=== PATIENT | female | born 1985 | race Two or more races ===

== ENCOUNTER 2018-05-20 06:49 | Emergency (ER) | payer BC ==
[~2018-05-20] VITALS: Ht 172.7 cm; Wt 102.5 kg
--- NOTE | 2018-05-20 06:55 | NUR ---
PT BIBSELF C/C CHEST PAIN SINCE 299. RADIATING LEFT SHOULDER AND BACK, +N/V, -SOB. PT ON MONITOR IN BED 10 WITH FAMILY AT BEDSIDE. WILL CONTINUE TO MONITOR.
[2018-05-20] MEDS ORDERED: KETOROLAC TROMETHAMINE 15 MG/ML VIAL ONE (07:09)
[2018-05-20] MEDS ORDERED: MAG HYDROX/AL HYDROX/SIMETH 30 ML UDC ONE (07:09)
[2018-05-20] MEDS ORDERED: ONDANSETRON HCL/PF 4 MG/2 ML VIAL ONE (07:09)
[2018-05-20] MEDS ORDERED: FAMOTIDINE (20 MG) 20 MG TABLET ONE (07:10)
--- NOTE | 2018-05-20 07:11 | NUR ---
Line started on R ac g 20, blood drawn from line and sent to lab
--- NOTE | 2018-05-20 07:15 | NUR ---
TECH AT BEDSIDE FOR EKG
--- NOTE | 2018-05-20 07:29 | NUR ---
REPORT GIVEN TO LOREN LAWRENCE FOR [facility]AB[facility]
[2018-05-20] MEDS ORDERED: MAG HYDROX/AL HYDROX/SIMETH 30 ML UDC PO ONE (07:30)
[2018-05-20] MEDS ORDERED: ONDANSETRON HCL/PF 4 MG/2 ML VIAL IVP ONE (07:30)
[2018-05-20] MEDS ORDERED: KETOROLAC TROMETHAMINE INJ 30 MG/ML VIAL IV ONE (07:30)
[2018-05-20] MEDS ORDERED: FAMOTIDINE (20 MG) 20 MG TABLET PO ONE (07:30)
[2018-05-20] MEDS ORDERED: IV NS 0.9% 1,000 ML BAG IV ONE (07:30)
[2018-05-20 07:38] LABS: BASOPHILS % (AUTO) 0.6 % (0.0-2.0); EOSINOPHILS % (AUTO) 1.3 % (0.0-6.0); HEMATOCRIT 41 % (33-45); HEMOGLOBIN 14.1 g/dL (11.5-14.8); LYMPHOCYTES # (AUTO) 2.1 /CMM (0.8-4.8); LYMPHOCYTES % (AUTO) 27.3 % (20.0-44.0); MEAN CORPUSCULAR HGB CONC 34 g/dl (31.0-36.0); MEAN CORPUSCULAR VOLUME 90 fL (82-100); MONOCYTES # (AUTO) 0.7 /CMM (0.1-1.30); MONOCYTES % (AUTO) 8.5 % (2.0-12.0); NEUTROPHILS # (AUTO) 4.8 /CMM (1.8-8.9); NEUTROPHILS % (AUTO) 62.3 % (43.0-81.0); PLATELET COUNT (AUTO) 293 /CMM (150-450); RED BLOOD CELL COUNT(AUTO) 4.59 MIL/uL (4.0-5.2); WHITE BLOOD COUNT (AUTO) 7.7 K/uL (4.3-11.0)
[2018-05-20 07:58] LABS: ALANINE AMINOTRANSFERASE 31 U/L (12-78); ALBUMIN 3.9 g/dL (3.4-5.0); ALKALINE PHOSPHATASE 44 U/L (46-116); ASPARTATE AMINOTRANSFERASE 19 U/L (15-37); BILIRUBIN,DIRECT 0.1 mg/dL (0.0-0.2); BILIRUBIN,TOTAL 0.5 mg/dL (0.2-1.0); CARBON DIOXIDE 27 mmol/L (21-32); CHLORIDE 101 mmol/L (98-107); CREATININE 0.7 mg/dL (0.6-1.3); GLUCOSE 110 mg/dL (74-106); LIPASE 168 U/L (73-393); SODIUM SERUM 137 mmol/L (136-145); TOTAL PROTEIN, SERUM 7.9 g/dL (6.4-8.2); UREA NITROGEN, BLOOD 13 mg/dL (7-18)
--- NOTE | 2018-05-20 08:45 | NUR ---
DR KEE AT TALKING TO THE PATIENT.
--- NOTE | 2018-05-20 08:53 | NUR ---
IV removed. Catheter intact and site benign. Pressure and 4x4 applied to site. No bleeding noted.Patient discharged to home in stable condition. Written and verbal after care instructions given. Patient verbalizes understanding of instruction.
[2018-05-20 08:55] VITALS: BP 145/72
== END 2018-05-20 08:55 | disposition home or self-care (01) ==
LOC: ER 06:51
DX: K29.70 Gastritis, unspecified, without bleeding (principal); I10 Essential (primary) hypertension; E03.9 Hypothyroidism, unspecified; Z60.2 Problems related to living alone
CPT/HCPCS: 36415; 71045; 80048; 80076; 83690; 84484; 85025; 93005; 96361; 96374; 96375; 99284; A4606; J1885; J2405; J7030